=== PATIENT | female | born 1950 | race Caucasian/White ===

== ENCOUNTER 2019-01-29 16:29 | Inpatient (IN) | payer MEDICARE, MEDICAID ==
[~2019-01-29] VITALS: Ht 157.5 cm; Wt 70.1 kg
[2019-01-29 17:24] LABS: CLARITY URINE CLEAR (CLEAR); COLOR URINE YELLOW (YELLOW); KETONES URINE NEGATIVE (NEGATIVE); LEUKOCYTE ESTERASE URINE NEGATIVE (NEGATIVE); NITRITE URINE NEGATIVE (NEGATIVE); OCCULT BLOOD URINE NEGATIVE (NEGATIVE); PROTEIN URINE NEGATIVE (NEGATIVE); SPECIFIC GRAVITY URINE 1.032 (1.005-1.030); UROBILINOGEN URINE 0.2 E.U./dL (0.2-1.0)
[2019-01-29] MEDS ORDERED: ONDANSETRON HCL 4MG/2ML INJ IV STA (20:07)
[2019-01-29] MEDS ORDERED: SODIUM CHLORIDE 0.9% 1,000 ML IV ONE (20:07)
[2019-01-29 20:34] LABS: BASOPHILS % 0.5 % (0.0-2.0); EOSINOPHILS % 0.3 % (0.0-5.0); HEMATOCRIT. 32.4 % (36.0-48.0); HEMOGLOBIN. 10.5 g/dL (12.0-16.0); LYMPHOCYTES % 32.6 % (20.0-50.0); MEAN CORPUSCULAR HEMOGLOBIN 29.1 pg (28.0-32.0); MEAN CORPUSCULAR VOLUME 89.5 fL (81.0-99.0); MONOCYTES % 7.3 % (2.0-8.0); NEUTROPHILS % 59.3 % (40.0-76.0); PLATELET 246 x1000/uL (130-400); RED BLOOD CELL COUNT 3.62 mill/uL (4.2-5.4); RED CELL DISTRIBUTION WIDTH 17.3 % (11.6-14.6)
[2019-01-29 20:36] LABS: CHLORIDE 96 mEq/L (98-107)
[2019-01-29 20:37] LABS: PROTHROMBIN TIME 9.9 sec (9.1-11.1)
[2019-01-29 20:44] LABS: BETA HYDROXYBUTYRATE 0.6 mMol/L (0.0-0.3)
[2019-01-29] MEDS ORDERED: INSULIN REGULAR (HUMULIN R) 300UNITS/3ML SUBCUT ONE (21:15)
[2019-01-30 08:30] VITALS: BP 140/66
[2019-01-30] MEDS: INSULIN LISPRO 100 UNITS/ML SUBCUT SCH ×3 (10:41→17:12)
[2019-01-30] MEDS ORDERED: MAGNESIUM/ALUMINUM HYDROXIDE/SIMETHICONE 30ML UDC PO PRN (10:45)
[2019-01-30] MEDS ORDERED: ONDANSETRON HCL 4MG/2ML INJ IV PRN (10:45)
[2019-01-30] MEDS ORDERED: ACETAMINOPHEN 325MG TABLET PO PRN (10:45)
[2019-01-30] MEDS ORDERED: LORAZEPAM 2MG/ML CPJ IV PRN (10:45)
[2019-01-30 12:27] VITALS: BP 110/51
[2019-01-30] MEDS: BLOOD SUGAR DIAGNOSTIC STRIP TEST SCH ×3 (12:30→21:17)
[2019-01-30] MEDS: INSULIN GLARGINE UD 100 UNITS/ML SYR SUBCUT SCH (12:30)
[2019-01-30] MEDS: CALCIUM CARBONATE/VITAMIN D3 500MG TABLET PO SCH ×2 (12:36→17:10)
[2019-01-30] MEDS: SERTRALINE HCL 50MG TABLET PO SCH (12:36)
[2019-01-30] MEDS: AMLODIPINE 5MG TABLET PO SCH (12:37)
[2019-01-30] MEDS: SODIUM CHLORIDE 0.45% 1,000 ML IV SCH (13:19)
[2019-01-30] MEDS: GABAPENTIN 300MG CAPSULE PO SCH ×2 (13:30→21:17)
[2019-01-30 16:00] VITALS: BP 117/40
[2019-01-30] MEDS ORDERED: OMEPRAZOLE 20MG CAPSULE EXTENDED RELEASE PO NR (17:00)
[2019-01-30] MEDS: LOSARTAN POTASSIUM 50 MG TABLET PO SCH (17:11)
[2019-01-30] MEDS: ENOXAPARIN 40MG/0.4ML SYR SUBCUT SCH (17:13)
[2019-01-30 20:00] VITALS: BP 88/50
[2019-01-30] MEDS: ATORVASTATIN CALCIUM 20MG TABLET PO SCH (21:17)
[2019-01-31] VITALS (7 sets, daily range): BP systolic 103–139; BP diastolic 37–57
[2019-01-31] MEDS: BLOOD SUGAR DIAGNOSTIC STRIP TEST SCH ×4 (06:21→20:10)
[2019-01-31] MEDS: GABAPENTIN 300MG CAPSULE PO SCH ×3 (06:21→21:15)
[2019-01-31] MEDS: OMEPRAZOLE 20MG CAPSULE EXTENDED RELEASE PO SCH (06:21)
[2019-01-31] MEDS: INSULIN LISPRO 100 UNITS/ML SUBCUT SCH ×3 (06:43→17:23)
[2019-01-31] MEDS: SODIUM CHLORIDE 0.45% 1,000 ML IV SCH ×2 (06:45→17:28)
[2019-01-31 07:31] LABS: BASOPHILS % 0.6 % (0.0-2.0); EOSINOPHILS % 0.4 % (0.0-5.0); HEMATOCRIT. 32.4 % (36.0-48.0); HEMOGLOBIN. 10.4 g/dL (12.0-16.0); LYMPHOCYTES % 36.7 % (20.0-50.0); MEAN CORPUSCULAR HEMOGLOBIN 28.9 pg (28.0-32.0); MEAN CORPUSCULAR VOLUME 89.6 fL (81.0-99.0); MEAN PLATELET VOLUME 8.1 fl (7.4-10.4); MONOCYTES % 8.6 % (2.0-8.0); NEUTROPHILS % 53.7 % (40.0-76.0); PLATELET 227 x1000/uL (130-400); RED BLOOD CELL COUNT 3.61 mill/uL (4.2-5.4); RED CELL DISTRIBUTION WIDTH 17.4 % (11.6-14.6)
[2019-01-31 07:50] LABS: CHLORIDE 107 mEq/L (98-107)
[2019-01-31 08:05] LABS: T4 FREE 1.01 ng/dL (0.76-1.46)
[2019-01-31] MEDS: AMLODIPINE 5MG TABLET PO SCH (08:23)
[2019-01-31] MEDS: SERTRALINE HCL 50MG TABLET PO SCH (08:31)
[2019-01-31] MEDS: CALCIUM CARBONATE/VITAMIN D3 500MG TABLET PO SCH ×2 (08:31→17:22)
[2019-01-31] MEDS: INSULIN GLARGINE UD 100 UNITS/ML SYR SUBCUT SCH (10:29)
[2019-01-31] MEDS ORDERED: TRAMADOL 50MG TABLET PO PRN (10:45)
[2019-01-31] MEDS: LOSARTAN POTASSIUM 50 MG TABLET PO SCH (17:22)
[2019-01-31] MEDS: ENOXAPARIN 40MG/0.4ML SYR SUBCUT SCH (17:23)
[2019-01-31] MEDS: ATORVASTATIN CALCIUM 20MG TABLET PO SCH (20:07)
[2019-01-31] MEDS ORDERED: LACTULOSE 20G/30ML UDC PO PRN (22:00)
[2019-01-31] MEDS ORDERED: DIATR MEGLU/DIATRIZOATE SOLN 30ML PO SCH (23:00)
[2019-02-01] VITALS: BP 117/49
[2019-02-01] MEDS: SODIUM CHLORIDE 0.45% 1,000 ML IV SCH ×3 (04:07→17:40)
[2019-02-01 04:30] VITALS: BP 130/57
[2019-02-01] MEDS: OMEPRAZOLE 20MG CAPSULE EXTENDED RELEASE PO SCH (06:26)
[2019-02-01] MEDS: BLOOD SUGAR DIAGNOSTIC STRIP TEST SCH ×4 (06:26→21:00)
[2019-02-01] MEDS: GABAPENTIN 300MG CAPSULE PO SCH ×3 (06:26→21:43)
[2019-02-01] MEDS ORDERED: DIATR MEGLU/DIATRIZOATE SOLN 30ML PO SCH (06:45)
[2019-02-01 06:54] LABS: BASOPHILS % 0.6 % (0.0-2.0); EOSINOPHILS % 0.5 % (0.0-5.0); HEMATOCRIT. 30.8 % (36.0-48.0); HEMOGLOBIN. 9.8 g/dL (12.0-16.0); LYMPHOCYTES % 37.8 % (20.0-50.0); MEAN CORPUSCULAR HEMOGLOBIN 28.7 pg (28.0-32.0); MEAN CORPUSCULAR VOLUME 90.3 fL (81.0-99.0); MEAN PLATELET VOLUME 8.2 fl (7.4-10.4); MONOCYTES % 8.2 % (2.0-8.0); NEUTROPHILS % 52.9 % (40.0-76.0); PLATELET 217 x1000/uL (130-400); RED BLOOD CELL COUNT 3.41 mill/uL (4.2-5.4); RED CELL DISTRIBUTION WIDTH 17.3 % (11.6-14.6)
[2019-02-01 07:01] LABS: CHLORIDE 109 mEq/L (98-107)
[2019-02-01 07:33] LABS: TOTAL IRON BINDING CAPACITY 266 ug/dL (250-450)
[2019-02-01 08:00] VITALS: BP 143/53
[2019-02-01] MEDS: CALCIUM CARBONATE/VITAMIN D3 500MG TABLET PO SCH ×2 (08:55→17:40)
[2019-02-01] MEDS: AMLODIPINE 5MG TABLET PO SCH (08:55)
[2019-02-01] MEDS: INSULIN LISPRO 100 UNITS/ML SUBCUT SCH ×3 (08:56→18:24)
[2019-02-01] MEDS: SERTRALINE HCL 50MG TABLET PO SCH (08:56)
[2019-02-01] MEDS ORDERED: DOCUSATE SODIUM 100MG CAPSULE PO SCH (09:00)
[2019-02-01] MEDS ORDERED: IOHEXOL-300 100 ML BOTTLE ONE (10:50)
[2019-02-01] MEDS: INSULIN GLARGINE UD 100 UNITS/ML SYR SUBCUT SCH (11:04)
[2019-02-01 12:00] VITALS: BP 116/47
[2019-02-01] MEDS ORDERED: NA PHOS,M-B/NA PHOS,DI-BA ENEMA 118ML PR NR (12:15)
[2019-02-01] MEDS ORDERED: BISACODYL 10MG SUPP PR PRN (12:15)
[2019-02-01] MEDS: LACTULOSE 20G/30ML UDC PO SCH ×4 (12:17→21:00)
[2019-02-01 13:38] LABS: CREATINE KINASE 40 IU/L (26-192)
[2019-02-01 16:00] VITALS: BP 104/43
[2019-02-01] MEDS: LOSARTAN POTASSIUM 50 MG TABLET PO SCH (16:39)
[2019-02-01] MEDS: DOCUSATE SODIUM 100MG CAPSULE PO SCH (17:40)
[2019-02-01] MEDS: ENOXAPARIN 40MG/0.4ML SYR SUBCUT SCH (18:24)
[2019-02-01 20:00] VITALS: BP 116/48
[2019-02-01] MEDS: ATORVASTATIN CALCIUM 20MG TABLET PO SCH (21:43)
[2019-02-01] MEDS: POLYETHYLENE GLYCOL 3350 (17GM) 1 DOSE PACK PO SCH (21:45)
[2019-02-02] VITALS: BP 115/50
[2019-02-02 04:00] VITALS: BP 118/51
[2019-02-02] MEDS: SODIUM CHLORIDE 0.45% 1,000 ML IV SCH ×2 (04:31→21:05)
[2019-02-02] MEDS ORDERED: COSYNTROPIN 0.25MG/ML VIAL IV NR (05:15)
[2019-02-02] MEDS: BLOOD SUGAR DIAGNOSTIC STRIP TEST SCH ×4 (07:20→21:06)
[2019-02-02] MEDS: OMEPRAZOLE 20MG CAPSULE EXTENDED RELEASE PO SCH (07:26)
[2019-02-02] MEDS: GABAPENTIN 300MG CAPSULE PO SCH ×3 (07:26→21:06)
[2019-02-02 07:36] LABS: BASOPHILS % 0.6 % (0.0-2.0); EOSINOPHILS % 0.7 % (0.0-5.0); FOLIC ACID (FOLATE) SERUM >20 ng/mL ng/mL (>5.38); HEMATOCRIT. 29.3 % (36.0-48.0); HEMOGLOBIN. 9.6 g/dL (12.0-16.0); LYMPHOCYTES % 38.7 % (20.0-50.0); MEAN CORPUSCULAR HEMOGLOBIN 29.5 pg (28.0-32.0); MEAN CORPUSCULAR VOLUME 89.8 fL (81.0-99.0); MEAN PLATELET VOLUME 8.5 fl (7.4-10.4); PLATELET 222 x1000/uL (130-400); RED BLOOD CELL COUNT 3.26 mill/uL (4.2-5.4)
[2019-02-02] MEDS: INSULIN LISPRO 100 UNITS/ML SUBCUT SCH ×3 (07:39→17:38)
[2019-02-02 07:47] LABS: VITAMIN B12 SERUM 1467 pg/mL (211-911)
[2019-02-02 08:01] LABS: CHLORIDE 112 mEq/L (98-107)
[2019-02-02 08:34] VITALS: BP 127/53
[2019-02-02] MEDS ORDERED: NA PHOS,M-B/NA PHOS,DI-BA ENEMA 118ML PR PRN (09:00)
[2019-02-02] MEDS: FERROUS SULFATE 325MG TABLET PO SCH ×2 (10:03→13:37)
[2019-02-02] MEDS: SERTRALINE HCL 50MG TABLET PO SCH (10:03)
[2019-02-02] MEDS: DOCUSATE SODIUM 100MG CAPSULE PO SCH ×2 (10:04→17:35)
[2019-02-02] MEDS: AMLODIPINE 5MG TABLET PO SCH (10:04)
[2019-02-02] MEDS: CALCIUM CARBONATE/VITAMIN D3 500MG TABLET PO SCH ×2 (10:09→17:35)
[2019-02-02] MEDS: INSULIN GLARGINE UD 100 UNITS/ML SYR SUBCUT SCH (10:10)
[2019-02-02] MEDS ORDERED: BISACODYL 10MG SUPP PR NR (10:30)
[2019-02-02 12:55] VITALS: BP 104/57
[2019-02-02 17:18] VITALS: BP 129/50
[2019-02-02] MEDS: ENOXAPARIN 40MG/0.4ML SYR SUBCUT SCH (17:35)
[2019-02-02] MEDS: LOSARTAN POTASSIUM 50 MG TABLET PO SCH (17:35)
[2019-02-02 20:25] VITALS: BP 111/43
[2019-02-02] MEDS: ATORVASTATIN CALCIUM 20MG TABLET PO SCH (21:05)
[2019-02-02] MEDS: POLYETHYLENE GLYCOL 3350 (17GM) 1 DOSE PACK PO SCH ×2 (21:06→21:13)
[2019-02-03] VITALS: BP 120/53
[2019-02-03 04:00] VITALS: BP 114/55
[2019-02-03] MEDS: GABAPENTIN 300MG CAPSULE PO SCH ×4 (06:21→21:15)
[2019-02-03] MEDS: SODIUM CHLORIDE 0.45% 1,000 ML IV SCH ×2 (06:23→17:19)
[2019-02-03] MEDS: OMEPRAZOLE 20MG CAPSULE EXTENDED RELEASE PO SCH (06:23)
[2019-02-03 06:38] LABS: BASOPHILS % 0.5 % (0.0-2.0); EOSINOPHILS % 0.8 % (0.0-5.0); HEMATOCRIT. 29.1 % (36.0-48.0); HEMOGLOBIN. 9.6 g/dL (12.0-16.0); LYMPHOCYTES % 36.5 % (20.0-50.0); MEAN CORPUSCULAR HEMOGLOBIN 29.6 pg (28.0-32.0); MEAN CORPUSCULAR VOLUME 89.5 fL (81.0-99.0); MEAN PLATELET VOLUME 8.2 fl (7.4-10.4); MONOCYTES % 9.8 % (2.0-8.0); NEUTROPHILS % 52.4 % (40.0-76.0); PLATELET 205 x1000/uL (130-400); RED BLOOD CELL COUNT 3.25 mill/uL (4.2-5.4); RED CELL DISTRIBUTION WIDTH 17.6 % (11.6-14.6)
[2019-02-03] MEDS: BLOOD SUGAR DIAGNOSTIC STRIP TEST SCH ×4 (07:20→21:00)
[2019-02-03 08:00] VITALS: BP 146/60
[2019-02-03 08:06] LABS: CHLORIDE 111 mEq/L (98-107)
[2019-02-03 08:13] LABS: LDL CHOLESTEROL 66 mg/dL (5-100)
[2019-02-03 08:14] LABS: HDL CHOLESTEROL 73 mg/dL (40-59)
[2019-02-03] MEDS: SERTRALINE HCL 50MG TABLET PO SCH (08:52)
[2019-02-03] MEDS: CALCIUM CARBONATE/VITAMIN D3 500MG TABLET PO SCH ×2 (08:52→17:06)
[2019-02-03] MEDS: DOCUSATE SODIUM 100MG CAPSULE PO SCH ×2 (08:52→17:06)
[2019-02-03] MEDS: AMLODIPINE 5MG TABLET PO SCH (08:53)
[2019-02-03] MEDS: FERROUS SULFATE 325MG TABLET PO SCH ×2 (08:53→13:01)
[2019-02-03] MEDS: INSULIN LISPRO 100 UNITS/ML SUBCUT SCH ×3 (08:55→17:21)
[2019-02-03] MEDS: PREDNISONE 5MG TABLET PO SCH (14:42)
[2019-02-03 16:00] VITALS: BP 131/56
[2019-02-03] MEDS: LOSARTAN POTASSIUM 50 MG TABLET PO SCH (17:06)
[2019-02-03] MEDS: ENOXAPARIN 40MG/0.4ML SYR SUBCUT SCH (17:06)
[2019-02-03 17:15] VITALS: BP 127/62
[2019-02-03 20:08] VITALS: BP 139/51
[2019-02-03] MEDS: ATORVASTATIN CALCIUM 20MG TABLET PO SCH (21:15)
[2019-02-04] VITALS (7 sets, daily range): BP systolic 119–128; BP diastolic 49–68
[2019-02-04] MEDS: SODIUM CHLORIDE 0.45% 1,000 ML IV SCH ×2 (04:36→10:45)
[2019-02-04] MEDS: OMEPRAZOLE 20MG CAPSULE EXTENDED RELEASE PO SCH (06:46)
[2019-02-04] MEDS: GABAPENTIN 300MG CAPSULE PO SCH ×3 (06:47→21:08)
[2019-02-04] MEDS: BLOOD SUGAR DIAGNOSTIC STRIP TEST SCH ×4 (06:50→21:00)
[2019-02-04] MEDS: INSULIN LISPRO 100 UNITS/ML SUBCUT SCH ×2 (06:50→12:28)
[2019-02-04] MEDS: DOCUSATE SODIUM 100MG CAPSULE PO SCH ×2 (09:00→17:00)
[2019-02-04] MEDS: SERTRALINE HCL 50MG TABLET PO SCH (09:23)
[2019-02-04] MEDS: FERROUS SULFATE 325MG TABLET PO SCH ×2 (09:23→14:09)
[2019-02-04] MEDS: PREDNISONE 5MG TABLET PO SCH (09:23)
[2019-02-04] MEDS: AMLODIPINE 5MG TABLET PO SCH (09:24)
[2019-02-04] MEDS: CALCIUM CARBONATE/VITAMIN D3 500MG TABLET PO SCH ×2 (09:24→17:10)
[2019-02-04] MEDS ORDERED: INSULIN GLARGINE UD 100 UNITS/ML SYR SUBCUT SCH ×2 (10:00→22:00)
[2019-02-04] MEDS: LOSARTAN POTASSIUM 50 MG TABLET PO SCH (17:10)
[2019-02-04] MEDS ORDERED: INSULIN LISPRO 100 UNITS/ML SUBCUT SCH (17:20)
[2019-02-04] MEDS: ENOXAPARIN 40MG/0.4ML SYR SUBCUT SCH (17:33)
[2019-02-04] MEDS: ATORVASTATIN CALCIUM 20MG TABLET PO SCH (21:08)
[2019-02-04] MEDS: POLYETHYLENE GLYCOL 3350 (17GM) 1 DOSE PACK PO SCH (21:09)
[2019-02-05] MEDS ORDERED: FAMOTIDINE 20MG TABLET PO SCH (09:00)
[2019-02-05 09:06] LABS: FOLICLE STIMULATING HORMONE 54.3 mIU/mL (.); LUTEINIZING HORMONE 26.1 mIU/mL (.); PROLACTIN 13.5 ng/mL (4.8-23.3)
[2019-02-06 17:06] LABS: 25-HYDROXY VITAMIN D3 8.7 ng/mL (.)
== END 2019-02-04 21:30 | disposition home or self-care (01) | DRG 638 ==
LOC: ER 17:05 → 6WST 21:04 → EDBEDREQ 21:07 → EDBEDREQTM 21:07 → ENRESERV 01-30 07:36
PROVIDERS: ADMIT Internal Medicine Rheumatology; ATTEND Internal Medicine Rheumatology
DX: E11.10 Type 2 diabetes mellitus with ketoacidosis without coma (principal); E87.1 Hypo-osmolality and hyponatremia; E46 Unspecified protein-calorie malnutrition; E27.49 Other adrenocortical insufficiency; J98.11 Atelectasis; E78.5 Hyperlipidemia, unspecified; E11.51 Type 2 diabetes mellitus with diabetic peripheral angiopathy without gangrene; D86.9 Sarcoidosis, unspecified; K56.41 Fecal impaction; M11.20 Other chondrocalcinosis, unspecified site; M48.061 Spinal stenosis, lumbar region without neurogenic claudication; D50.9 Iron deficiency anemia, unspecified; G83.14 Monoplegia of lower limb affecting left nondominant side; M47.816 Spondylosis without myelopathy or radiculopathy, lumbar region; K58.9 Irritable bowel syndrome, unspecified; F20.9 Schizophrenia, unspecified; G89.29 Other chronic pain; I08.3 Combined rheumatic disorders of mitral, aortic and tricuspid valves; M35.00 Sjogren syndrome, unspecified; F32.9 Major depressive disorder, single episode, unspecified; M48.02 Spinal stenosis, cervical region; M51.36 Other intervertebral disc degeneration, lumbar region; M81.0 Age-related osteoporosis without current pathological fracture; Z79.4 Long term (current) use of insulin; Z80.1 Family history of malignant neoplasm of trachea, bronchus and lung; Z82.49 Family history of ischemic heart disease and other diseases of the circulatory system; Z98.42 Cataract extraction status, left eye; Z90.49 Acquired absence of other specified parts of digestive tract; Z83.3 Family history of diabetes mellitus; Z88.0 Allergy status to penicillin; Z90.711 Acquired absence of uterus with remaining cervical stump; Z98.1 Arthrodesis status; Z68.28 Body mass index [BMI] 28.0-28.9, adult; E11.00 Type 2 diabetes mellitus with hyperosmolarity without nonketotic hyperglycemic-hyperosmolar coma (NKHHC)
CPT/HCPCS: 36415; 70551; 71045; 72110; 72141; 72146; 72148; 74176; 74178; 80048; 80061; 82010; 82024; 82088; 82140; 82306; 82533; 82550; 82607; 82746; 82962; 83001; 83002; 83036; 83520; 83540; 83550; 83605; 83880; 83930; 84146; 84305; 84439; 84443; 84484; 84681; 93005; 93970; 96374; 97110; 97116; 97162; 97166; 99285; C1893; J0834; J1650; J1815; J2405; J7030; J7512; Q9963; Q9967